=== PATIENT | female | born 1990 | race Caucasian/White ===

== ENCOUNTER 2016-03-09 14:26 | Inpatient (IN) | payer MEDICAID ==
[~2016-03-09] VITALS: Ht 165.1 cm; Wt 68.6 kg
[~2016-03-09 14:26] MED LIST: PREN-96 PO
[2016-03-09] MEDS ORDERED: PROMETHAZINE HCL 25 MG/ML 1ML IV ONE (17:45)
[2016-03-09] MEDS ORDERED: NALBUPHINE HCL 10 MG/1ml INJECTION IV ONE (17:45)
[2016-03-09 18:20] LABS: Basophils # (auto) 0 uL; Basophils % (auto) 0.2 % (0.0-2.0); DEFINITIVE VIEW TRANSMISSION; Eosinophils # (auto) 0 uL; Eosinophils % (auto) 0.3 % (0.0-7.0); Hematocrit 38.2 % (36.0-46.0); Hemoglobin 12.6 g/dL (12.2-16.2); Lymphocytes # (auto) 1.2 uL; Mean Corpuscular Hemoglobin 26.4 pg (28.0-32.0); Mean Corpuscular Volume 80.1 fL (80.0-100.0); Mean Platelet Volume 7.9 fL (7.4-10.4); Monocytes # (auto) 0.8 uL; Monocytes % (auto) 7.4 % (0.0-12.0); Neutrophils # (auto) 8.9 uL; Neutrophils % (auto) 81.1 % (37.0-80.0); Platelet Count (auto) 244 10^3/uL (140-450); Red Cell Distribution Width 12.2 % (11.6-16.0)
[2016-03-09 18:39] LABS: INR 1.13 (0.9-1.15); Partial Thromboplastin Time 29.3 sec (22.64-33.71); Prothrombin Time 11.6 sec (9.37-12.3)
[2016-03-09 18:40] LABS: Urine Bilirubin Negative (Negative); Urine Color Yellow (Yellow); Urine Glucose Normal (Normal); Urine Ketone Negative (Negative); Urine Nitrite Negative (Negative); Urine RBC 17 /hpf (0 - 4); Urine Squamous Epithelial Cell MANY /hpf (<5); Urine Urobilinogen Normal (Negative); Urine pH 6.5 (5.0-8.0)
[2016-03-09 18:41] LABS: Urine Blood 2+ /uL (Negative)
[2016-03-09 18:49] LABS: Albumin 3.6 g/dL (3.4-5.0); BUN/Creatinine Ratio 11.1; Calcium 8.2 mg/dL (8.5-10.1); Magnesium 2.1 mg/dL (1.6-2.6); Potassium 3.4 mmol/L (3.5-5.1)
[2016-03-09 18:56] LABS: Bilirubin, Total 0.9 mg/dL (0.2-1.0); Total Protein 7.5 g/dL (6.4-8.2)
[2016-03-09] MEDS ORDERED: SODIUM CHLORIDE 0.9% 1,000 ML IV ONE ×2 (19:28→22:00)
[2016-03-09] MEDS ORDERED: LEVOFLOXACIN 500MG 100 ML IV ONE (19:30)
[2016-03-09] MEDS ORDERED: ONDANSETRON HCL 4 MG/2 ML VIAL IV PRN (22:00)
[2016-03-09] MEDS ORDERED: PANTOPRAZOLE SODIUM 40 MG/10 ML VIAL IV ONE (22:00)
[2016-03-09] MEDS ORDERED: NITROGLYCERIN 0.4 MG SL TAB SL PRN (22:00)
[2016-03-09] MEDS ORDERED: MORPHINE SULF INJ 2 MG/ML SYRINGE 1ML IV PRN (22:00)
[2016-03-09] MEDS ORDERED: MIDAZOLAM HCL 1MG/1ML-2 ML VIAL ONE (22:30)
[2016-03-09] MEDS ORDERED: fentaNYL CITRATE 5 ML ONE (22:30)
[2016-03-09] MEDS ORDERED: ROCURONIUM 10MG/ML 10ML VIAL IV ONE (22:31)
[2016-03-09] MEDS ORDERED: SUCCINYLCHOLINE CHLORIDE 20 MG/ML 10ML VIAL IV ONE (22:32)
[2016-03-09] MEDS ORDERED: ONDANSETRON HCL 4 MG/2 ML VIAL ONE (22:35)
[2016-03-09] MEDS ORDERED: METOCLOPRAMIDE HCL 5MG/ml INJ 2ml VIAL ONE (22:35)
[2016-03-09] MEDS ORDERED: LIDOCAINE HCL 2 %PF INJ 10ML AMP IJ ONE (22:35)
[2016-03-09] MEDS ORDERED: DEXAMETHASONE SOD PHOS 10MG/1ML VIAL INJ ONE (22:35)
[2016-03-09] MEDS ORDERED: PROPOFOL 10 MG/ML 20 ML IV ONE (22:35)
[2016-03-09 22:36] LABS: INR 1.17 (0.9-1.15)
[2016-03-09] MEDS ORDERED: ONDANSETRON HCL 4 MG/2 ML VIAL IV ONE (23:30)
[2016-03-09] MEDS ORDERED: KETOROLAC TROMETH 30 MG/ML 1ML VIAL IV ONE (23:30)
[2016-03-09] MEDS ORDERED: PROMETHAZINE HCL 25 MG/ML 1ML IM ONE (23:30)
[2016-03-09] MEDS ORDERED: MIDAZOLAM HCL 1MG/1ML-2 ML VIAL IV PRN (23:30)
[2016-03-09] MEDS ORDERED: METOCLOPRAMIDE HCL 5MG/ml INJ 2ml VIAL IV ONE (23:30)
[2016-03-09] MEDS ORDERED: HYDROmorphone HCL 2 MG/ML VL IV PRN (23:30)
[2016-03-09] MEDS ORDERED: hydrALAZINE HCL 20 MG/ML VL IV PRN (23:30)
[2016-03-09] MEDS ORDERED: ePHEDrine SULFATE 50 MG/ML AMP IV PRN (23:30)
[2016-03-09] MEDS ORDERED: NALOXONE HCL 0.4 MG/ML VIAL IV PRN (23:30)
[2016-03-09] MEDS ORDERED: KETOROLAC TROMETH 30 MG/ML 1ML VIAL ONE (23:34)
[2016-03-09] MEDS ORDERED: BUPIVACAINE 0.25% INJ 50ML VIAL ONE (23:34)
[2016-03-10] VITALS (7 sets, daily range): BP systolic 94–113; BP diastolic 53–73
[2016-03-10] MEDS ORDERED: D5W/SOD CHL 0.45% 1,000 ML IV ONE
[2016-03-10] MEDS ORDERED: ONDANSETRON HCL 4 MG/2 ML VIAL IV ONE
[2016-03-10] MEDS: LABETALOL HCL 5 MG/ML 4ML SYRINGE IV PRN ×2 (01:21→01:23)
[2016-03-10] MEDS ORDERED: HYDROmorphone HCL 2 MG/ML VL IV ONE (02:00)
[2016-03-10 06:18] LABS: Basophils # (auto) 0 uL; Basophils % (auto) 0.1 % (0.0-2.0); DEFINITIVE VIEW TRANSMISSION; Eosinophils # (auto) 0 uL; Hematocrit 36.2 % (36.0-46.0); Hemoglobin 11.8 g/dL (12.2-16.2); Lymphocytes # (auto) 0.6 uL; Lymphocytes % (auto) 5.5 % (10.0-50.0); Mean Corpuscular Hemoglobin 26.6 pg (28.0-32.0); Mean Corpuscular Hgb Conc. 32.7 g/dL (32.0-36.0); Mean Corpuscular Volume 81.4 fL (80.0-100.0); Mean Platelet Volume 8.5 fL (7.4-10.4); Monocytes # (auto) 0.3 uL; Monocytes % (auto) 2.6 % (0.0-12.0); Neutrophils # (auto) 9.8 uL; Neutrophils % (auto) 91.8 % (37.0-80.0); Platelet Count (auto) 237 10^3/uL (140-450); Red Cell Distribution Width 12.4 % (11.6-16.0); White Blood Cell 10.7 10^3/uL (4.4-10.8)
[2016-03-10 06:53] LABS: Albumin 3.4 g/dL (3.4-5.0); Bilirubin, Total 0.8 mg/dL (0.2-1.0); Calcium 8.4 mg/dL (8.5-10.1); Potassium 3.9 mmol/L (3.5-5.1)
[2016-03-10] MEDS: MORPHINE SULF INJ 2 MG/ML SYRINGE 1ML IV PRN ×3 (07:01→21:40)
[2016-03-10] MEDS: PANTOPRAZOLE SODIUM 40 MG/10 ML VIAL IV SCH (10:12)
[2016-03-10] MEDS: SODIUM CHLORIDE 0.9% 1,000 ML IV SCH (15:18)
[2016-03-10] MEDS: metroNIDAZOLE 250MG/50 ML 50 ML IV SCH ×3 (15:19→21:39)
[2016-03-10] MEDS ORDERED: LEVOFLOXACIN 500MG 100 ML IV SCH (22:00)
[2016-03-11] MEDS: SODIUM CHLORIDE 0.9% 1,000 ML IV SCH (02:35)
[2016-03-11 04:59] VITALS: BP 109/61
[2016-03-11] MEDS: metroNIDAZOLE 250MG/50 ML 50 ML IV SCH ×2 (05:57→13:12)
[2016-03-11] MEDS: MORPHINE SULF INJ 2 MG/ML SYRINGE 1ML IV PRN ×2 (05:58→12:50)
[2016-03-11 06:23] LABS: Basophils # (auto) 0 uL; Basophils % (auto) 0.4 % (0.0-2.0); DEFINITIVE VIEW TRANSMISSION; Eosinophils # (auto) 0.1 uL; Eosinophils % (auto) 1.6 % (0.0-7.0); Hematocrit 32.9 % (36.0-46.0); Hemoglobin 10.8 g/dL (12.2-16.2); Lymphocytes # (auto) 2.4 uL; Lymphocytes % (auto) 40.4 % (10.0-50.0); Mean Corpuscular Hemoglobin 26.5 pg (28.0-32.0); Mean Corpuscular Hgb Conc. 32.8 g/dL (32.0-36.0); Mean Corpuscular Volume 80.9 fL (80.0-100.0); Mean Platelet Volume 8.1 fL (7.4-10.4); Monocytes # (auto) 0.5 uL; Monocytes % (auto) 8.9 % (0.0-12.0); Neutrophils # (auto) 2.9 uL; Neutrophils % (auto) 48.7 % (37.0-80.0); Platelet Count (auto) 234 10^3/uL (140-450); Red Cell Distribution Width 12.8 % (11.6-16.0); White Blood Cell 5.9 10^3/uL (4.4-10.8)
[2016-03-11 06:58] LABS: BUN/Creatinine Ratio 12.3; Potassium 3.8 mmol/L (3.5-5.1)
[2016-03-11 09:26] VITALS: BP 109/69
[2016-03-11] MEDS: PANTOPRAZOLE SODIUM 40 MG/10 ML VIAL IV SCH (09:31)
[2016-03-11 11:00] VITALS: BP 117/69
[2016-03-11 13:19] VITALS: BP 117/69
[2016-03-11 17:07] VITALS: BP 112/69
== END 2016-03-11 17:35 | disposition home or self-care (01) | DRG 225 ==
LOC: ER 14:32 → WEST WING 14:33 → UNDOADMIN 03-10 00:53 → UNDODISIN 03-11 17:35
PROVIDERS: ADMIT Family Medicine; ATTEND Internal Medicine
PROC: 0W9J4ZZ Drainage of Pelvic Cavity, Percutaneous Endoscopic Approach (ICD-10-PCS; 2016-03-09)
PROC: 0DTJ4ZZ Resection of Appendix, Percutaneous Endoscopic Approach (ICD-10-PCS; principal; 2016-03-09 22:52)
DX: K35.80 Unspecified acute appendicitis (principal); N39.0 Urinary tract infection, site not specified; E86.0 Dehydration; D64.9 Anemia, unspecified; E66.9 Obesity, unspecified; Z68.25 Body mass index [BMI] 25.0-25.9, adult; Z98.890 Other specified postprocedural states; Z90.49 Acquired absence of other specified parts of digestive tract; Z88.0 Allergy status to penicillin
CPT/HCPCS: 36415; 74176; 80048; 80053; 81001; 83690; 83735; 84702; 85025; 85049; 85610; 85730; 86850; 86900; 86901; 87040; 96374; 96375; C9113; J0330; J1100; J1885; J1956; J2250; J2405; J2704; J3490